=== PATIENT | male | born 1955 ===

== ENCOUNTER 2017-11-07 07:00 | Day surgery (SDC) | payer OTHER ==
[~2017-11-07] VITALS: Ht 172.7 cm; Wt 104.3 kg
[~2017-11-07 07:00] MED LIST: LOSARTAN-HCTZ1 EAC2 PO; METFORMIN PO
== END 2017-11-07 16:00 | disposition home or self-care (01) ==
LOC: CIR.AMB 07:00 → EDSTATUS 12:00 → SURH 12:00 → O/R 12:15 → CIR.AMB 16:00
DX: K80.10 Calculus of gallbladder with chronic cholecystitis without obstruction (principal)

== ENCOUNTER 2022-09-24 13:53 | Emergency (ER) | payer OTHER ==
[~2022-09-24] VITALS: Ht 172.7 cm; Wt 88.5 kg
[2022-09-24] MEDS ORDERED: BENADRYL ITCH C59 ML TOP (15:47)
== END 2022-09-24 16:03 | disposition home or self-care (01) ==
LOC: ER 13:53
DX: R21 Rash and other nonspecific skin eruption (principal); L29.8 Other pruritus; E11.9 Type 2 diabetes mellitus without complications; Z79.84 Long term (current) use of oral hypoglycemic drugs; I10 Essential (primary) hypertension